=== PATIENT | male | born 1945 | race Two or more races ===

== ENCOUNTER 2020-11-12 12:40 | Outpatient (CLI) | payer OTHER | END 2020-11-12 12:45 | disposition home or self-care (01) | LOC: TOM 12:40 | PROVIDERS: ATTEND Internal Medicine Cardiovascular Disease | DX: G44.89 Other headache syndrome (principal); G93.89 Other specified disorders of brain ==

== ENCOUNTER 2020-11-20 06:02 | Day surgery (SDC) | payer OTHER | END 2020-11-20 11:15 | disposition home or self-care (01) | LOC: AMB-ENDOS 06:02 | PROVIDERS: ATTEND Colon & Rectal Surgery | DX: D12.7 Benign neoplasm of rectosigmoid junction (principal); D12.5 Benign neoplasm of sigmoid colon; K64.1 Second degree hemorrhoids; Z20.822 Contact with and (suspected) exposure to COVID-19 ==